=== PATIENT | female | born 1990 | race Caucasian/White ===

== ENCOUNTER 2016-11-03 15:22 | Inpatient (IN) | payer OTHER ==
[~2016-11-03] VITALS: Ht 180.3 cm; Wt 105.7 kg
[2016-11-03] MEDS ORDERED: Hemorrhage Kit, Post Partum XX ONE (16:15)
[2016-11-03] MEDS ORDERED: Methylergonovine 0.2 mg/mL Inj IM PRN (16:15)
[2016-11-03] MEDS ORDERED: Lactated Ringer's 1,000 ML IV PRN (16:15)
[2016-11-03] MEDS ORDERED: Oxytocin 30 Units/500 mL LR 30 UNITS in IV Premix 1 EACH IV PRN (16:15)
[2016-11-03] MEDS ORDERED: Ondansetron 2 mg/mL 2 mL Inj IVPUSH PRN (16:15)
[2016-11-03] MEDS ORDERED: Carboprost 250 mCg/mL Inj IM PRN (16:15)
[2016-11-03] MEDS ORDERED: Sodium Chloride LOK Flush 10 mL Syringe IVFLUSH PRN (16:15)
[2016-11-03] MEDS ORDERED: Lactated Ringer's 1,000 ML IV SCH (16:15)
[2016-11-03] MEDS ORDERED: fentaNYL-PF 50 mCg/mL 2 mL Inj IVPUSH PRN (16:15)
[2016-11-03] MEDS ORDERED: Oxytocin 10 Unit/mL Inj IM PRN (16:15)
[2016-11-03] MEDS ORDERED: diphenhydrAMINE 50 mg Capsule PO PRN (16:15)
[2016-11-03 21:02] LABS: Mean Corpuscular Hemoglobin 30.9 pg (27.0-35.0)
[2016-11-04] MEDS ORDERED: Oxytocin 30 Units/500 mL LR 30 UNITS in IV Premix 1 EACH IV PRN ×2 (10:20→14:35)
--- NOTE | 2016-11-04 11:39 | PCM.PNOBIP ---
Subjective Date of Service November 04, 2016 Subjective Doing well this AM admitted for induction of labor due to gestational hypertension at 39+5 weeks gestational age. Received cervidil overnight Activity: Ambulating Independently Group B Strep Results: Negative Rubella: Immune Blood Type: A RH Type: Positive Labs Laboratory Tests 11/03/16 20:45: White Blood Count 10.5, Red Blood Count 3.88, Hemoglobin 12.0, Hematocrit 35.3, Mean Corpuscular Volume 91.0, Mean Corpuscular Hemoglobin 30.9, Mean Corpuscular Hemoglobin Concent 34.0, Red Cell Distribution Width 13.9, Platelet Count 233 Exam Vital Signs Vital Signs Contraction frequency in minutes: MVUs: Vital Signs: VS reviewed, stable (110-130's/60-70's overnight ) Heart Tracings Heart Tones Baseline 130 bpm Heart Rate Variability: Moderate Heart Rate Accelleration: Present Heart Rate Deceleration: Absent Heart Rate Category: I Tocometry/IUPC Contraction frequency in minutes: MVUs: Sterile Vaginal Exam Cervical Dilation: 3 cms Cervical Effacement: 80 % Station: -3 Exam Exam Deferred- patient showering OB Intrapartum Assessment/Plan Assessment 26 yo at 39+5 admitted for induction of labor due to gestational hypertension - Doing well s/p cervidil overnight. Hand score is 7--- will start pitocin per protocol - BP are stable- labs normal- continue to monitor - Continue expectant management : Epidural when/if desired Intrapartum plan: Continue expected management, Start pitocin Angelica Torres MD November 04, 2016 11:39
[2016-11-04] MEDS: Lactated Ringer's 1,000 ML IV SCH ×4 (11:59→22:34)
[2016-11-04] MEDS ORDERED: Lactated Ringer's 500 ML IV ONE (11:59)
[2016-11-04] MEDS ORDERED: fentaNYL 2 mCg/mL-Bupiv 0.125% 100 ML EPIDURAL SCH (12:00)
[2016-11-04] MEDS ORDERED: EPHEDrine Sulfate 50 mg/mL Inj IVPUSH PRN (12:00)
[2016-11-04] MEDS ORDERED: Atropine 1 mg/10 mL (Code) Syringe IVPUSH PRN (12:00)
--- NOTE | 2016-11-04 12:01 | PCM.HPANE ---
Patient Data Surgeon Admitting Provider:Arabella Denny MD Attending Provider:Arabella Denny MD Primary Care Physician:Willy Other Provider:Raj Swain Anesthesia Reason for Visit Induction INDUCTION Ht/WT & BMI Body Mass Index Allergies Uncoded Allergies: penicillin (Allergy, Intermediate, 11/03/16) rash Past Anesthesia History Anesthesia History: Denies:: Abnormal Airway, Anesthesia Reactions, Difficult Intubation, Fam Anesthesia Reaction, Fam Malignant Hypertherm, Malignant Hyperthermia History History of ENT Problems?: No HEENT History: Denies:: Abnormal Airway Cataracts Difficult Intubation Dysphagia Glaucoma Hearing Problem Sinus Problem TMJ Denture Type: None Teeth Condition: Within Normal Limits Hx of Heart Problems?: No Cardiovascular History: Denies:: AICD Abdominal Aortic Aneurism Atrial Fibrillation Cardiac Surgery Chest Pain Congestive Heart Failure Coronary Artery Disease Edema Heart Murmur Hypertension Irregular Heartbeat Pacemaker Peripheral Vascular Rheumatic Fever Thrombophlebitis Valvular Heart Disease Hx of Respiratory Problem?: No Respiratory History: Denies:: Asthma COPD Chest Surgery Cough Dyspnea Emphysema Hemoptysis Oxygen Administration Pneumonia Pulmonary Embolism Tuberculosis Use of C-PAP Machine Use of Inhalers / NEBS Hx Neurologic Problems?: No Neurological History: Denies:: Alzheimer's Disease CVA Dementia Dizziness Headaches Multiple Sclerosis Parkinson's Disease Peripheral Neuropathy Seizures TIA Hx of GI Problems?: No Gastrointestinal History: Denies:: Cirrhosis Diverticulitis Gall Bladder Disease Gastroesphageal Reflux Gastrointestinal Bleeding Heartburn Hepatitis Hiatal Hernia Liver Disease Rectal Bleeding Hx of Problems?: No Genitourinary History: Denies:: HX of Hemodialysis Kidney Stones Urinary Tract Infection HX of Peritoneal Dialysis: No Female Hx: Positive for:: Currently Skin History: Denies:: History Skin Disorders? Pressure Ulcers Hx Musculoskeletal Problems?: No Hx of Psycho/Social Problems?: No Hx Surgeries?: No Hx Any Other Health Problems?: No Hx Diabetes: No Hx Alcohol Use: NoHx Substance Use: No Smoking Status: Never Smoker Have You Smoked inLast 12 mo: No Stop/Bang Risk Assessment Category Category 1A: Patient has history of documented sleep apnea, and HAS NOT received any narcotic, sedative or anesthesia administration during this stay. Category 1B: Patient has history of documented sleep apnea, and HAS received any narcotic , sedative or anesthesia administration during this stay Category 2: Patient has SUSPECTED Obstructive Sleep Apnea, and HAS received any narcotic , sedative or anesthesia administration during this stay. Category 3: Patient has SUSPECTED Obstructive Sleep Apnea and HAS NOT received narcotic, sedative or anesthesia administration during this stay. Category 4: Outpatient in Procedural Areas with known sleep apnea or who screen positive for High Risk via the STOP/BANG questionnaire. Exam Exam General Appearance: Alert, Oriented X3, Cooperative, No Acute Distress HEENT/AIRWAY: MP 2, Neck Movement (from), Mouth Opening (wnl) Lungs: Clear to Auscultation Heart: Exam Unremarkable Meds/Labs/Diagnostics Admission Meds Current Medications Lactated Ringer's (Lr) 1,000 ml @ 125 mls/hr Q8H IV Last administered on 10:34; Start 11/03/16 at 16:15 Dinoprostone (Cervidil Vaginal Insert) 10 mg ONCE ONCE VAGINAL Last administered on 11/03/16 22:00; Start 11/03/16 at 16:15; Stop 11/03/16 at 19:18 ; Status DC Labs Test 11/03/16 20:45 White Blood Count 10.5th/mm3 (3.8-10.1) Red Blood Count 3.88mil/mm3 (3.90-5.20) Hemoglobin 12.0g/dL (12.0-15.6) Hematocrit 35.3% (35.0-46.0) Mean Corpuscular Volume 91.0fL (81-100) Mean Corpuscular Hemoglobin 30.9pg (27.0-35.0) Mean Corpuscular Hemoglobin Concent 34.0% (32.0-37.0) Red Cell Distribution Width 13.9% (12.3-15.4) Platelet Count 233bil/L (150-400) Plan Impression Patient chart reviewed, patient interviewed and anesthestic plan with risks, benefits, and alternatives discussed, and informed consent obtained. ASA Physical Status: ASA2 Mod Systemic Disease Anesthetic Plan: Epidural Bene/Risks/Altern/Consents: Yes HP Complete Prior to Induction: Yes Harsh Hogan MD November 04, 2016 12:01
--- NOTE | 2016-11-04 12:38 | PCM.ANEP1 ---
Post Anesthesia Phase 1 PACU Phase 1 Assessment Anesthetic Administered: Epidural Level of Alertness: Awake, talking BARTLETT's with Equal Strength: No Pain: Yes Nausea or Vomiting: No Lungs: Normal Air Movement Dermatome Level: T10 (Umbilicus) Complications: No Follow up Care: No Harsh Hogan MD November 04, 2016 12:38
[2016-11-04] MEDS ORDERED: HYDROcodone-APAP 5-325 mg Tablet PO PRN (14:35)
[2016-11-04] MEDS ORDERED: Benzocaine (Dermoplast) 20% 60 Gm Spray TOPICAL PRN (14:35)
[2016-11-04] MEDS ORDERED: Witch Hazel-Glycerin Pads TOPICAL PRN (14:35)
[2016-11-04] MEDS ORDERED: Carboprost 250 mCg/mL Inj IM PRN (14:35)
[2016-11-04] MEDS ORDERED: LANOlin HPA 7 Gm Ointment TOPICAL PRN (14:35)
[2016-11-04] MEDS ORDERED: Hemorrhage Kit, Post Partum XX ONE (14:35)
[2016-11-04] MEDS ORDERED: Methylergonovine 0.2 mg/mL Inj IM PRN (14:35)
[2016-11-04] MEDS ORDERED: Oxytocin 10 Unit/mL Inj IM PRN (14:35)
[2016-11-04] MEDS: Ascorbic Acid 500 mg Tablet PO SCH (19:57)
--- NOTE | 2016-11-05 02:50 | OP ---
[address] [address] OPERATIVE REPORT PATIENT: CHANO METCALF : 1990 MR#: [id number] ADMIT: 11/03/2016 JOB ID: [id number] DATE OF SURGERY: 11/04/2016 PREOPERATIVE DIAGNOSIS(ES): 1. Thirty-nine plus five week intrauterine , here for an induction of labor due to gestational hypertension. 2. Transfer care from the [facility]. POSTOPERATIVE DIAGNOSIS(ES): 1. Thirty-nine plus five week intrauterine , here for an induction of labor due to gestational hypertension. 2. Transfer care from the [facility]. PROCEDURE PERFORMED: Spontaneous vaginal delivery of a live born female infant, born on November [birth year], 2016 at 1408 hours. Weight is not available at this time. Apgars 8 at one minute, 9 at five minutes. SURGEON: Angelica Torres MD. ANESTHESIA: Epidural. ESTIMATED BLOOD LOSS: 200 cc. FLUID REPLACEMENT: Crystalloid in labor. COMPLICATIONS: None apparent. INDICATIONS: This is a 26-year-old, G1, P0 female who presented to the Center on the evening of November 03 at 39+ 5 weeks gestation for an induction of labor due to gestational hypertension. Her was otherwise uncomplicated. She did transfer care from the [facility] at approximately 26 weeks. Her blood pressures in clinic have ranged anywhere between the 150 and the 170s and stabilize on labor and delivery. She was admitted on November 03 and received a single dose of Cervidil overnight. On the morning of November 04 her cervix was checked and she was noted to be 3 cm dilated, 80% effaced and -3 station, and Pitocin was started per protocol. She quickly progressed to 5 cm dilated and requested an epidural which was placed and following this, she quickly progressed to complete, at which point she began to push, bringing the infant's vertex to the perineum. PROCEDURE: The patient was found to be complete and pushing, so she was placed in dorsal lithotomy position, prepped and draped in the usual sterile fashion for delivery. She pushed and the head delivered spontaneously in the ONUR position over intact perineum. She did deliver the en caul and she did rupture her membranes following delivery of the head. The anterior shoulder delivered easily, followed by the posterior shoulder. The remainder of the infant was then easily delivered. The cord was clamped and cut after a 60 second cord clamping delay. Cord blood was obtained. Pitocin was started per protocol, the placenta delivered spontaneously was passed off the table. However, there are palpable remaining placental membranes present and multiple manual extraction of placenta fragments was necessary until no further placental tissue was palpated within the uterine cavity. At examination, the cervix and vaginal vault revealed no lacerations. Examination of the perineum showed a second degree laceration which was repaired with 3-0 Vicryl in the usual running fashion. The patient tolerated the procedure well, recovered in labor and delivery with her infant. All sponge, needle and instrument counts were correct. PERCY
[2016-11-05] MEDS: Lactated Ringer's 1,000 ML IV SCH ×2 (03:59→06:34)
[2016-11-05 06:21] LABS: Mean Corpuscular Hemoglobin 30.9 pg (27.0-35.0)
[2016-11-05] MEDS: Ascorbic Acid 500 mg Tablet PO SCH (08:33)
--- NOTE | 2016-11-05 09:30 | PCM.PNOBPP ---
Subjective Date of Service November 05, 2016 Visit History 26 yo at 39+5 admitted for induction of labor due to gestational hypertension on 11/03/2016. He had cervical ripening done with Cervidil. The following morning she had a Hand score of 7 and Pitocin was started. She progressed rapidly through labor and had a normal spontaneous vaginal delivery on 11/04/2016 at 1059hrs. Her blood pressures have remained normal throughout her course and she is otherwise asymptomatic. Subjective Patient has no complaints today. She is doing well and ambulating voiding and tolerating a regular diet. Lochia: Normal Pain Management: PO pain meds Gastrointestinal: Good Appetite, No N/V Postop Activity: Ambulating Independently Group B Strep Results: Negative Rubella: Immune Blood Type: A RH Type: Positive Labs Laboratory Tests 11/05/16 05:48: White Blood Count 13.0, Red Blood Count 3.76, Hemoglobin 11.6, Hematocrit 34.6, Mean Corpuscular Volume 92.0, Mean Corpuscular Hemoglobin 30.9, Mean Corpuscular Hemoglobin Concent 33.5, Red Cell Distribution Width 14.4, Platelet Count 222 Exam Vital Signs Vital Signs: VS reviewed, stable Exam Abdomen: Fundus firm Extremities: No cords Lungs: Clear to Auscultation Heart: Exam Unremarkable General: Alert, Oriented X3, Cooperative, No Acute Distress OB Post Assessment/Plan Problems: (1) care and examination immediately after delivery Plan: The patient's blood pressures are normal and she has had no laboratory abnormalities. She is doing well and anticipate discharge home today. Status: Acute ICD Code: Z39.0 Pain Evaluation: Adequate Pain Control Post plan: Continue routine post care, Anticipate discharge home today Arabella Denny MD November 05, 2016 09:30
--- NOTE | 2016-11-05 09:33 | PCM.DC.OB ---
Obstetrical Discharge Summary Date of Service November 05, 2016 Date of hospital admission November 03, 2016 at 19:00 Date of Discharge: November 05, 2016 Providers Admitting Physician: Arabella Denny MD Primary Care Physician: N[place]gabino Attending Physician: Arabella Denny MD Diagnosis at Time of Discharge 1. Gestational hypertension 2. status post normal vaginal delivery on 11/04/2016. Problems: (1) care and examination immediately after delivery Status: Acute ICD Code: Z39.0 Brief History and Physical: 26 yo at 39+5 admitted for induction of labor due to gestational hypertension on 11/03/2016. He had cervical ripening done with Cervidil. The following morning she had a Hand score of 7 and Pitocin was started. She progressed rapidly through labor and had a normal spontaneous vaginal delivery on 11/04/2016 at 1059hrs. Her blood pressures have remained normal throughout her course and she is otherwise asymptomatic. Hospital Course: The patient's hospital course was uneventful. Her blood pressures normalized and she had no laboratory abnormalities. She was doing well and discharged home. Discharge Diet: No restrictions Discharge Activity-General: Pelvic Rest for 6 weeks, Try not to overdue, Be up and about Arabella Denny MD November 05, 2016 09:33
--- NOTE | 2016-11-05 09:34 | PCM.DIOB ---
Obstetrical Disch Instruction Dates of Hospitalization Date of Hospital Admission November 03, 2016 at 19:00 Providers Admitting Physician: Arabella Denny MD Primary Care Physician: Nopgabino Attending Physician: Arabella Denny MD Discharge Diagnosis Discharge Diagnosis 1. Gestational hypertension 2. Problems: (1) care and examination immediately after delivery Status: Acute ICD Code: Z39.0 Diet Discharge Diet: No restrictions Activity Discharge Activity-General: Pelvic Rest for 6 weeks, Try not to overdue, Be up and about Dressing and Incisional Care Hygiene: May shower Follow Up Plan Follow-up appointment: Weeks (4 to 6 ) Call your provider for: Fever or Chills, Shortness of breath, Heavy vaginal bleeding, Red painful breasts Arabella Denny MD November 05, 2016 09:34
[2016-11-05] MEDS ORDERED: FERR-74 PO (09:36)
[2016-11-05] MEDS ORDERED: Ascorbic Acid PO (09:36)
[2016-11-05] MEDS ORDERED: IBUP800T28 PO (09:36)
[2016-11-05 14:42] VITALS: BP 133/72; PULSE 76; RESP 18
== END 2016-11-05 15:31 | disposition home or self-care (01) | DRG 775 ==
LOC: FBC 19:00
PROVIDERS: ADMIT Obstetrics & Gynecology; ATTEND Obstetrics & Gynecology
PROC: 3E0P7GC Introduction of Other Therapeutic Substance into Female Reproductive, Via Natural or Artificial Opening (ICD-10-PCS; 2016-11-03)
PROC: 10E0XZZ Delivery of Products of Conception, External Approach (ICD-10-PCS; principal; 2016-11-04)
PROC: 0KQM0ZZ Repair Perineum Muscle, Open Approach (ICD-10-PCS; 2016-11-04)
DX: O13.4 Gestational [pregnancy-induced] hypertension without significant proteinuria, complicating childbirth (principal); Z3A.39 39 weeks gestation of pregnancy; Z37.0 Single live birth; O70.1 Second degree perineal laceration during delivery